=== PATIENT | male | born 1960 | race Caucasian/White ===

== ENCOUNTER 2018-03-22 11:00 | Emergency (ER) | payer BC ==
[2018-03-22] MEDS ORDERED: Sodium Chloride 0.9% 10 ML Syringe FLUSH PRN (11:13)
[2018-03-22] MEDS ORDERED: Aspirin 81 MG Tab.Chew PO ONE (11:13)
--- NOTE | 2018-03-22 11:16 | EDM.PDOC ---
ED HPI GENERAL MEDICAL PROBLEM - General Chief Complaint: Chest Pain Stated Complaint: CHEST PAIN Time Seen by Provider: 03/22/18 11:15 Source of Information: Reports: Patient, Old Records, Provider History Limitations: Reports: No Limitations - History of Present Illness INITIAL COMMENTS - FREE TEXT/NARRATIVE: 57 yo male presents with low/central chest pain lately. Tried antacids with partial relief. Was seen in the clinic today for this and referred to the ER. EKG in the clinic showed flipped T's in the lateral leads, he has not had any recent EKG's for comparison. He has no personal hx of CAD. Historically he has no hx of HTN, but it is high today. His cholesterol is good, he does not have DM , he is obese, he quit smoking in the early . FHx is stronger for CVA than for CAD with only a grandfather having a heart attack. No SOB, nausea or diaphoresis or radiation. Onset Date: 03/21/18 Duration: Hour(s):, Waxing/Waning Location: Reports: Chest (low, central) Quality: Reports: Burning, Pressure Severity: Moderate Improves with: Reports: Medication (antacids reduced slightly) Worsens with: Reports: Other (uncertain) Context: Reports: Other (See HPI) Associated Symptoms: Reports: Chest Pain. Denies: Diaphoresis, Fever/Chills, Nausea/Vomiting, Shortness of Breath Treatments [employer]: Reports: Other (see below) (antacids at home) Mid-Sternal Chest Pain Score (Numeric/FACES): 3 - Related Data Allergies Allergy/AdvReac Type Severity Reaction Status Date / Time No Known Allergies Allergy Verified 01/19/15 07:07 Home Meds: Home Meds Albuterol Sulfate [Albuterol Sulfate HFA] 2 puff INH Q4H PRN 08/20/14 [History] Beclomethasone Dipropionate [Qvar 40 Mcg] 2 puff INH DAILY 08/20/14 [History] Multivitamin with Minerals [Multiple Vitamin] 1 tab PO DAILY 08/20/14 [History] Triamcinolone Acetonide [Nasacort] 1 spray NASBOTH DAILY 08/20/14 [History] Cetirizine HCl [Zyrtec] 10 mg PO DAILY 01/17/15 [History] Psyllium with Sucrose [Metamucil] 1 packet PO DAILY 10/20/16 [History] Montelukast [Singulair] 10 mg PO DAILY 05/07/17 [History] Past Medical History HEENT History: Reports: Allergic Rhinitis, Impaired Vision, Other (See Below) Other HEENT History: TMJ Respiratory History: Reports: Asthma, Bronchitis, Recurrent, Sleep Apnea, SOB Gastrointestinal History: Reports: Colon Polyp Genitourinary History: Reports: Renal Calculus Musculoskeletal History: Reports: Other (See Below) Other Musculoskeletal History: right knee pain Neurological History: Reports: Migraines Endocrine/Metabolic History: Reports: Obesity/BMI 30+ - Infectious Disease History Infectious Disease History: Reports: Chicken Pox, Herpes - Past Surgical History Head Surgeries/Procedures: Reports: None HEENT Surgical History: Reports: Oral Surgery Male Surgical History: Reports: Ureteral Stent Endocrine Surgical History: Reports: None Neurological Surgical History: Reports: None Musculoskeletal Surgical History: Reports: Shoulder Surgery Dermatological Surgical History: Reports: Plastic Surgical Reconstruction/Repair , Other (See Below) Social & Family History - Family History Cardiac: Reports: Hypertension Respiratory: Reports: COPD, Sleep Apnea GI: Reports: Colon Polyps, Diverticulitis : Reports: Renal Calculus OBGYN: Reports: , Recurrent Spontaneous Neurological: Reports: CVA, Migraines Endocrine/Metabolic: Reports: Obesity/MBI 30+ Oncologic: Reports: Breast, Lung - Tobacco Use Smoking Status *Q: Never Smoker - Caffeine Use Caffeine Use: Reports: Coffee - Recreational Drug Use Recreational Drug Use: No ED ROS GENERAL - Review of Systems Review Of Systems: See Below Constitutional: Reports: No Symptoms HEENT: Reports: No Symptoms Respiratory: Reports: No Symptoms Cardiovascular: Reports: Chest Pain Endocrine: Reports: No Symptoms GI/Abdominal: Reports: Abdominal Pain (epigastric). Denies: Black Stool, Bloody Stool, Constipation, Diarrhea, Hematochezia, Nausea, Vomiting : Reports: No Symptoms Musculoskeletal: Reports: No Symptoms Skin: Reports: No Symptoms Neurological: Reports: No Symptoms ED EXAM, GENERAL - Physical Exam Exam: See Below Exam Limited By: No Limitations General Appearance: Alert, WD/WN, No Apparent Distress, Obese Eye Exam: Bilateral Eye: Normal Inspection Ears: Normal External Exam, Normal Canal, Hearing Grossly Normal Ear Exam: Bilateral Ear: Auricle Normal, Canal Normal Nose: Normal Inspection, Normal Mucosa, No Blood Throat/Mouth: Normal Inspection, Normal Lips, Normal Teeth, Normal Oropharynx, Normal Voice Head: Atraumatic, Normocephalic Neck: Normal Inspection Respiratory/Chest: No Respiratory Distress, Lungs Clear, Normal Breath Sounds, No Accessory Muscle Use Cardiovascular: Regular Rate, Rhythm, No Edema GI/Abdominal: Normal Bowel Sounds, Soft, No Distention, Tender (epigastric). No : Non-Tender, Distended, Guarding, Rigid, Rebound Back Exam: Normal Inspection. No: CVA Tenderness (R), CVA Tenderness (L) Extremities: Normal Inspection, Normal Range of Motion, Non-Tender, No Pedal Edema Neurological: Alert, Oriented, CN II-XII Intact, Normal Cognition, No Motor/ Sensory Deficits Psychiatric: Normal Affect, Normal Mood Skin Exam: Warm, Dry, Intact, Normal Color, No Rash EKG INTERPRETATION EKG Date: 03/22/18 Time: 11:00 Rhythm: NSR Rate (Beats/Min): 67 Shunk: Normal P-Wave: Present QRS: Normal ST-T: Normal QT: Normal Comparison: Change From Previous EKG EKG Interpretation Comments: inverted T waves in lateral leads. The clinic was able to find us an old EKG from 08/21. On this study he had the inverted T waves in I and AVL, but not V5 and V6. Course - Vital Signs Last Recorded V/S: Last Vital Signs Temp 35.3 C 03/22/18 12:09 Pulse 64 03/22/18 12:09 Resp 13 03/22/18 12:09 BP 155/86 H 03/22/18 12:09 Pulse Ox 94 L 03/22/18 12:09 - Orders/Labs/Meds Orders: Active Orders 24 hr Category Date Time Status Cardiac Monitoring [RC] .As Directed Care 03/22/18 11:13 Active Sodium Chloride 0.9% [Saline Flush] Med 03/22/18 11:13 Active 10 ml FLUSH ASDIRECTED PRN Saline Lock Insert [OM.PC] Routine Oth 03/22/18 11:13 Ordered Medication Orders Sodium Chloride (Saline Flush) 10 ml FLUSH ASDIRECTED PRN PRN Reason: Keep Vein Open Last Admin: 03/22/18 11:33 Dose: 10 ml Labs: Laboratory Tests 03/22/18 Range/Units 11:21 Troponin I < 0.017 (0.000-0.056) ng/mL Meds: Medications Generic Name Dose Route Start Last Admin Trade Name Merlin PRN Reason Stop Dose Admin Sodium Chloride 10 ml 03/22/18 11:13 03/22/18 11:33 Saline Flush FLUSH 10 ml ASDIRECTED PRN Administration Keep Vein Open Discontinued Medications Generic Name Dose Route Start Last Admin Trade Name Merlin PRN Reason Stop Dose Admin Aspirin 324 mg 03/22/18 11:13 03/22/18 11:30 Aspirin PO 03/22/18 11:14 324 mg ONETIME ONE Administration Al Hydroxide/Mg Hydroxide 15 0 ml 03/22/18 11:24 03/22/18 11:30 ml/ Lidocaine HCl 15 ml PO 03/22/18 11:25 30 ml ONETIME ONE Administration Departure - Departure Time of Disposition: 12:20 Disposition: Home, Self-Care 01 Condition: Good Clinical Impression: HTN, goal below 140/80 Gastritis Qualifiers: Gastritis type: unspecified gastritis Chronicity: acute Gastritis bleeding: without bleeding Qualified Code(s): K29.00 - Acute gastritis without bleeding Clinical Impression: (Ruled Out): GERD (gastroesophageal reflux disease) Instructions: Gastritis, Adult, [id number] Referrals: Alfredo Nicholson MD [Primary Care Provider] - Forms: ED Department Discharge Additional Instructions: Take famotidine 40 mg daily starting today. Avoid carbonated beverages. Use acetaminophen as needed, but limit use of ibuprofen or Aleve. Return for an exercise stress test to further make sure this is not your heart. You may use Gaviscon 30 ml after meals and at bedtime for further relief. Return a stool specimen for H. pylori testing. Return if you are worse. F/U with your provider after your stress test, a couple days after so the results are available. - My Orders Last 24 Hours: My Active Orders 03/22/18 11:13 Cardiac Monitoring [RC] .As Directed Sodium Chloride 0.9% [Saline Flush] 10 ml FLUSH ASDIRECTED PRN Saline Lock Insert [OM.PC] Routine - Assessment/Plan Last 24 Hours: My Active Orders 03/22/18 11:13 Cardiac Monitoring [RC] .As Directed Sodium Chloride 0.9% [Saline Flush] 10 ml FLUSH ASDIRECTED PRN Saline Lock Insert [OM.PC] Routine
[2018-03-22] MEDS ORDERED: Alum Hydrox/Mag Hydrox/Simeth 15 ML, Lidocaine 2% 15 ML PO ONE ×2 (11:24)
[2018-03-22 12:10] VITALS: BP 155/86
== END 2018-03-22 12:31 | disposition home or self-care (01) ==
LOC: JP.ED 11:00
DX: K29.00 Acute gastritis without bleeding (principal); I10 Essential (primary) hypertension; J45.909 Unspecified asthma, uncomplicated; Z79.899 Other long term (current) drug therapy
CPT/HCPCS: 36415; 84484; 99285; A9270

== ENCOUNTER 2020-01-03 06:21 | Day surgery (SDC) | payer BC ==
[2020-01-03] MEDS ORDERED: Dextrose 5%-Lactated Ringers 1,000 ML IV SCH (07:00)
[2020-01-03] MEDS ORDERED: Midazolam 1 MG/ML 2 ML SDV ONE (07:16)
[2020-01-03] MEDS ORDERED: Propofol 200 MG/20 ML SDV ONE ×2 (07:16→08:44)
[2020-01-03] MEDS ORDERED: fentaNYL 100 MCG/2 ML SDV ONE (07:16)
[2020-01-03] MEDS ORDERED: Albuterol/Ipratropium 3.0-0.5 MG/3 ML Neb Soln NEB ONE (07:30)
[2020-01-03 09:53] VITALS: BP 125/86; PULSE 65
--- NOTE | 2020-01-11 21:33 | OR ---
DATE OF PROCEDURE: 01/03/2020 SURGEON: Hayden Guillermo MD PREOPERATIVE DIAGNOSIS: Personal and family history of colonic polyps. POSTOPERATIVE DIAGNOSIS: Normal colonic examination. OPERATIVE PROCEDURE: Flexible colonoscopy. ANESTHESIA: IV sedation. INDICATION FOR PROCEDURE: A 59-year-old male presenting for followup colonoscopy, has both personal and family history of colon polyps. The plan is to do colonoscopy with biopsies and/or polypectomy as indicated. Potential risks of procedure including bleeding and perforation were discussed, and the patient wishes to proceed. DESCRIPTION OF PROCEDURE: The patient was taken to the operating room and placed in a left lateral decubitus position. IV sedation was administered, after which the initial digital rectal exam was performed and was unremarkable. Colonoscope was then passed into the rectum with retroflexion revealing uncomplicated hemorrhoidal columns. Scope was eventually passed to the level of the cecum. The prep was quite good with only small liquid stool present. To that level, no additional polyps or other signs of neoplasia were seen; likewise there was no diverticulosis or areas of colitis. Scope was then withdrawn. The above findings reconfirmed and the procedure concluded. The patient was taken to the recovery room in satisfactory condition. Recommendation would be to repeat the colonoscopy in 5 years. Hayden Guillermo MD /[id number]
--- OUTSIDE RECORDS SUMMARY | 2020-01-12 12:14 | XMSREPORT | Referral Summary ---
:1960 Author Organization [employer] Address [address] [address] Phone Care Team Providers Name Role Phone MD Bharat Primary Care Provider Reason for Referral Surgery (Routine) Status Reason Specialty Diagnoses / Referred By Referred To Procedures Contact Contact Authorized Prior Auth Before Diagnoses Colon cancer screening Eagle Nicholson Daniel, Scheduling Procedures COLONOSCOPY,FLEX,DIAGNOSTIC MD PARIS Fuentes [address] [phone] Phone: Fax: Comments Authorizing provider: Admitting Hospital: [facility] Diagnosis: colon cancer screening Procedure and Procedure Code: Date procedure: Related to work comp? No Will Botox be used during procedure: No (Routine) Status Reason Specialty Diagnoses / Referred By Referred To Procedures Contact Contact New Request Diagnoses Colon cancer screening Alfredo Nicholson Unlisted, Provider [address] [place], [place] [address] Question Answer Schedule procedure for: Screening Colonoscopy Comments If referring outside of the [facility], please pet counselor patient of potential [id number] expenses. Reason for Referral: Screening Colonosc opy Reason for Visit Reason Comments Physical Flu Vaccination Encounter Details Date Type Department Care Team Description 12/02/2019 Office Visit Alfredo Corrales [facility] e health care (Primary Dx); [facility] Mild intermittent asthma without complic ation; [facility] [address] Colon cancer screening; [address] [facility] [place] Need for prophylactic vaccination and in oculation against influenza; [place] CHAU on CPAP; [id number] Hyperlipidemia, unspecified hyperlipidem ia type [phone] Allergies Active Allergy Reactions Severity Noted Date Comments Cats Sneezing Medium 06/07/2019 Sneezes Dogs Sneezing Medium 06/07/2019 Sneezes Gramineae Pollens Unknown Medium 06/07/2019 Trees - Lisinopril Cough Low 05/05/2019 Unclear Patient Report Swelling Medium 06/07/2019 MSG- Swells up and becomes lethargic documented as of this encounter (statuses as of 12/05/2019) Medications Medication Sig Dispensed Refills Start Date End Date Status CPAP device Dx: CHAU Replace 1 Each 0 07/15/2012 Active supplies as needed. triamcinolone (NASACORT Place 1 [place] 3 Inhaler 3 11/22/2013 Active AQ) 55 MCG/ACT Inhaler into both nostrils two times a day. Cetirizine HCl (ZYRTEC Take 10 mg by 0 Active OR) mouth one time a day. Multiple Take 2 Tabs by 0 Activ e Vitamins-Minerals mouth one time a (ONE-A-DAY FOR HIM day. VITACRAVES) Chew Tab benzonatate (TESSALON Take 1 Cap by 100 Cap 0 05/21/2017 Active PERLES) 100 MG mouth three times capsuleIndications: a day as needed Persistent dry cough, for Cough. Mild intermittent asthma with acute exacerbation Additional Information Patient taking differently: 100 mg Oral NEEDED, Cough, Reported on 06/07/2019 aspirin 81 MG chewable Chew and swallow 81 mg 0 Active tablet one time a day. Take with food. nitroglycerin (NITROSTAT) Place 1 Tab under the 25 Tab 11 Active 0.4 MG sublingual tablet tongue every five minutes as needed for Chest pain. Do not crush; maximum of 3 doses in 15 minutes. albuterol HFA (PROAIR HFA, Inhale 1-2 Puffs into 3 Inhaler 3 1 02/09/2018 Active VENTOLIN HFA) 108 (90 Base) the lungs every four MCG/ACT inhalation hours as needed for aerosolIndications: Mild Shortness of Breath. intermittent asthma without Shake before using. complication Additional Information Patient taking differently: 1-2 Puff Inhalation NEEDED, Shortness of Breath, Shake before using., Reported on 06/07/2019 amLODIPine (Norvasc) Take 1 Tab by 90 Tab 3 08/02/2019 Active 10 MG tablet mouth one time a day. famotidine (Pepcid) TAKE 1 TABLET 180 Tab 0 10/31/2019 Active 20 MG BY MOUTH TWICE tabletIndications: DAILY Byrd's esophagus without dysplasia beclomethasone HFA Inhale 2 Puffs 10.6 g 11 12/02/2019 Active (Qvar Redihaler) 80 into the lungs MCG/ACT Aerosol two times a Breath day. ActivatedIndications: Mild intermittent asthma without complication losartan (Cozaar) 50 Take 1 Tab by 30 Tab 11 12/02/2019 Active MG tablet mouth one time a day. metoprolol succinate Take 0.5 Tabs 15 Tab 11 12/02/2019 Active (Toprol-XL) 25 MG 24 by mouth one hour extended-release time a day. Do tablet not crush or chew. montelukast Take 1 Tab by 30 Tab 11 12/02/2019 Act biju (Singulair) 10 MG mouth at tabletIndications: bedtime. Mild intermittent asthma without complication montelukast Take 1 Tab by 30 Tab 11 12/10/2018 Dis continued (SINGULAIR) 10 MG mouth at 020 (R eorder) tabletIndications: bedtime. Mild intermittent asthma without complication beclomethasone HFA Inhale 2 Puffs 3 Inhaler 3 12/10/201811/10 Discontinued (QVAR REDIHALER) 80 into the lungs 020 (Reorder) MCG/ACT Aerosol two times a Breath day. ActivatedIndications: Mild intermittent asthma without complication pantoprazole Take 1 Tab by 30 Tab 0 06/13/2019 Di scontinued (Protonix) 40 MG mouth every 020 ( Changed to an delayed-release morning before alternate therapy) tablet breakfast. Do not crush. losartan (Cozaar) 50 Take 1 Tab by 90 Tab 2 07/05/201911/10 Discontinued MG tablet mouth one time 020 (Reor cori) a day. metoprolol succinate Take 0.5 Tabs 45 Tab 3 08/02/201911/10 Discontinued (Toprol-XL) 25 MG 24 by mouth one 020 (Reorder) hour extended-release time a day. Do tablet not crush or chew. documented as of this encounter (statuses as of 12/05/2019) Active Problems Problem Noted Date Other dysphagia 06/08/2019 Overview: Added automatically from request for shakeel karrie [id number] Atypical chest pain 06/08/2019 Overview: Added automatically from request for shakeel karrie [id number] Normal coronary arteries 04/21/2018 Grade II diastolic dysfunction 04/21/2018 Unstable angina 04/02/2018 Overview: Added automatically from request for shakeel karrie [id number] HTN, goal below 130/80 04/02/2018 Overview: Added automatically from request for shakeel karrie [id number] Abnormal stress test 04/02/2018 Overview: Added automatically from request for shakeel karrie [id number] Class 3 severe obesity with serious comorbidity and karma dy mass index (BMI) 04/02/2018 of 40.0 to 44.9 in adult, unspecified obesity type Overview: Added automatically from request for shakeel karrie [id number] CHRISTENSEN (dyspnea on exertion) 04/02/2018 Overview: Added automatically from request for shakeel karrie [id number] Morbid obesity with BMI of 40.0-44.9, adult 05/21/2017 Foreign body in paranasal sinus, sequela 05/21/2017 Mild intermittent asthma without complication 01/07/20 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 Excessive dietary caloric intake 04/06/2015 Compulsive overeating 04/06/2015 Nephrolithiasis 09/12/2014 CHAU on CPAP 09/27/2013 Hx of repair of rotator cuff 10/19/2012 documented as of this encounter (statuses as of 12/05/2019) Resolved Problems Problem Noted Date Resolved Date Moderate persistent asthma without complication 12/04/2016 01/06/2017 documented as of this encounter (statuses as of 12/05/2019) Immunizations Name Administration Dates Next Due Influenza (6+ Months) Quad NPF Vial 01/22/2015 Influenza (Historic Use Only) 01/02/2010, 01/29/2009, 2007, 01/19/2007 Influenza A H1n1 01/29/2009 Influenza Quad Preservative Free 12/02/2019, 12/10/2018, , 12/04/2016, 11/19/2015 Influenza Seasonal Inj A,B 01/31/2014, 11/10/2012, 3, 01/27/2011 Pneumovax 23 12/10/2018, 10/05/2014, 01/02/2010 Tdap (7 years and older) 09/10/2011 Zoster Shingrix 2 Dose (Shingles) 03/14/2019, 12/10/201802/2019 documented as of this encounter Social History Tobacco Use Types Packs/Day Years Used Date Former Smoker Cigarettes 1 20 02/09/1973 - 0 02/21/1991 Smokeless Tobacco: Never Used Alcohol Use Drinks/Week oz/Week Comments Yes Alcohol Habits Answer Date Recorded How often do you have a drink containing alcohol? 2-3 times a week 04/21/2018 How many drinks containing alcohol do you have on a 1 or 2 04/21/2018 typical day when you are drinking? How often do you have six or more drinks on one Never 11/29/2019 occasion? Social Isolation Answer Date Recorded In a typical week, how many times do you Once a week 11/29/2019 talk on the phone with family, friends, or neighbors? How often do you get together with friends Once a week 11/29/2019 or relatives? How often do you attend restorationist or mormon More than 4 time s per year 11/29/2019 services? Do you belong to any clubs or organizations Yes 11/29/2019 such as restorationist groups, unions, fraternal or athletic groups, or school groups? How often do you attend meetings of the More than 4 times pe r year 11/29/2019 clubs or organizations you belong to? Are you now , , , 11/29/2019 , never or living with a partner? Physical Activity Answer Date Recorded On average, how many days per week do you engage in moderate to 0 days 11/29/2019 strenuous exercise (like walking fast, running, jogging, dancing, swimming, biking, or other activities that cause a light or heavy sweat)? On average, how many minutes do you engage in exercise at th is 0 min 11/29/2019 level? Stress Answer Date Recorded Do you feel stress - tense, restless, nervous, or anxious, N ot at all 11/29/2019 or unable to sleep at night because your mind is troubled all the time - these days? Education Answer Date Recorded What is the highest level of school Bachelor's degree (e.g., BA, AB, 11/29/2019 you have completed or the highest BS) degree you have received? Financial Resource Strain Answer Date Recorded How hard is it for you to pay for the very basics like Not h abel at all 06/07/2019 food, housing, medical care, and heating? Intimate Partner Violence Answer Date Recorded Within the last year, have you been afraid of your partner o r No 11/29/2019 ex-partner? Within the last year, have you been humiliated or emotionall y No 11/29/2019 abused in other ways by your partner or ex-partner? Within the last year, have you been kicked, hit, slapped, or No 11/29/2019 otherwise physically hurt by your partner or ex-partner? Within the last year, have you been raped or forced to have any No 11/29/2019 kind of sexual activity by your partner or ex-partner? Food Insecurity Answer Date Recorded Within the past 12 months, you worried that your food would Never true 06/07/2019 run out before you got money to buy more. Within the past 12 months, the food you bought just didn't N ever true 06/07/2019 last and you didn't have money to get more. Transportation Needs Answer Date Recorded In the past 12 months, has lack of transportation kept you f rom No 06/07/2019 medical appointments or from getting medications? In the past 12 months, has lack of transportation kept you f rom No 06/07/2019 meetings, work, or getting things needed for daily living? Sex Assigned at Date Recorded Male 03/26/2018 1:16 PM [employer] Job Start Date Occupation Industry Not on file Not on file Not on file COVID-19 Exposure Response Date Recorded In the last month, have you been in contact with No / Unsure 12/02/2019 10:50 AM CDT someone who was confirmed or suspected to have Coronavirus / COVID-19? documented as of this encounter Last Filed Vital Signs Vital Sign Reading Time Taken Comments Blood Pressure 122/68 12/02/2019 10:57 AM CDT Pulse 68 12/02/2019 10:57 AM CDT Temperature 36.3 C (97.3 F) 12/02/2019 10:57 AM CDT Respiratory Rate 16 12/02/2019 10:57 AM CDT Oxygen Saturation 97% 12/02/2019 10:57 AM CDT Inhaled Oxygen Concentration - - Weight 133.8 kg (294 lb 15.6 oz) 12/02/2019 10:57 AM CDT Height 178.8 cm (5' 10.38") 12/02/2019 10:57 AM CDT Body Mass Index 41.87 12/02/2019 10:57 AM CDT documented in this encounter Progress Notes Alfredo Nicholson MD - 12/02/2019 12:53 PM CDT Patient Name: SOURAV HIGGINS Date of Service: 12/02/2019 : 1960 Age: 58 Sex: M Patient Loc/Room: [facility]/ Provider: Alfredo Nicholson MD, Family Practice OFFICE NOTE SITE: [facility] SUBJECTIVE: 58-year-old male is seen today for review of chronic health problems. Pat has a known history of obstructive sleep apnea with CPAP therapy followed by sleep lab. He notes good nocturnal rest. No significant daytime somnolence or diminished activity. Had been involved in a Move, weight loss program prior to presentation of COVID-19 pandemic. Since the exercise program has been shuttered during the pandemic, he has had limited physical activity and recognized weight gain. He does have a history of mild persistent asthmatic lung disease managed with maintenance steroid inhalers and p.r.n. use of albuterol metered-dose inhaler, typically once per week. He notes cold air induced symptoms are reported. Has received his influenza vaccine today. Pneumococcal status is up to date. No history of COVID-19 disease. He is self-employed as an insurance salesperson. Uses appropriate social distancing, masking and sanitation habits to minimize risk of exposure. Noted history of underlying congestive heart failure. He is followed by CHF clinic at 6-month intervals. No recent cardiac symptoms. Denying orthopnea, PND, palpitations, anginal-like pain, or decline in exercise tolerance. Dependent edema is managed with use of compression stockings and elevation of the legs at night. HABITS: Nonsmoker. Caffeine intake of 2-4 cups of coffee daily. Alcohol use of less than 1 drink perday. Colonoscopy of 5 years ago was normal. Notes a familial history of premalignant polyps involving his father. REVIEW OF SYSTEMS: Neurologic - mild hearing loss, uses hearing protection with noise exposure. Corrective lenses are worn. No cataracts or glaucoma. No additional cardiac, respiratory, or GI complaints. Bowel movements are regular without melena or hematochezia. - chronic renal insufficiency, followed by nephrology services. Notes nocturia x1. OBJECTIVE: Weight is up slightly at 294 pounds, BMI 42, blood pressure 122/68, pulse 68, respiratoryrate 16. Ears, nose and throat are negative on inspection. Neck - no adenopathy, thyromegaly, or JVD. Brisk carotid pulses. No bruits. Lungs - symmetrical, clear, resonant, nontachypneic. Heart is regular without murmurs or gallops. Abdomen - obese, soft, nontender, and nondistended. No organomegaly. Active sounds. and rectal exam omitted. Extremities - mild pitting edema at the distal legs. Good arterial pulses. Skin is intact. No ischemic skin changes. IMPRESSION AND PLAN: 1. Mild intermittent asthmatic lung disease. Continue with maintenance QVAR and rescue use of albuterol inhaler. Influenza vaccine is administered today. Pneumococcal vaccine at 5-year intervals. 2. Obstructive sleep apnea. Continue with use of nocturnal CPAP therapy. Advised exercise and weightloss efforts as necessary treatment for management of sleep disorder. 3. History of congestive heart failure, chronic, stable accompanied by renal insufficiency. Does have routine followup with nephrology and cardiology services and labs to be drawn with specialty appointments. No change in medications. Advised low sodium diet. 4. History of arthralgias, previous patellofemoral syndrome with right patellar prosthesis. Stiffness is noted. Encourage range of motion exercises and bicycling as a means to improve on motion and general stiffness of the knee. 5. Familial history of colon polyps, 5-year colonoscopy is anticipated. [facility]. Alfredo Nicholson MD [facility] [phone] [address] /GS TID #:[id number] /jmnnc Alfredo ruiz MD - 12/02/2019 11:00 AM CDTDictated. documented in this encounter Plan of Treatment Date Type Specialty Care Team Description 01/02/2020 Appointment Gastroenterology Myrna Layton PA-C [address] [place] [phone] 01/11/2020 Appointment Pulmonary Harry Fletcher PA-C [address] [place] [address] [phone] 01/11/2020 Appointment Pulmonary Patti Jones, CASING MIXER, SENIOR DATABASE ENGINEER [address] [place] [address] [phone] 04/27/2020 Appointment Cardiology Gaston Kim, CASING MIXER, SENIOR DATABASE ENGINEER [address] [place] [address] [phone] Name Type Priority Associated Diagnoses Order S chedule LIPID PANEL Lab Routine Hyperlipidemia, unspecified Expected: 05/16/2020 hyperlipidemia type (Approxi mate), Expires: 06/29/2020 Name Type Priority Associated Diagnoses Order S chedule SCHEDULE ENDOSCOPY REFERRAL Routine Colon cancer screening Ordered: 12/02/2019 [facility] documented as of this encounter Implants Implanted Type Area Machine Stone Polisher Device Shelf Model / Identifier Expiration Date Ser ial / Lot 5.5mm [employer] [place] [id number] - [id number] Lef t: ARTHREX 06/08/2014 [id number] / Implanted: Qty: 4 on 09/08/2012 by Donovan Servin MD at [facility] NA / [id number] documented as of this encounter Visit Diagnoses Diagnosis Preventative health care - Primary Routine general medical examination at a health care facility Mild intermittent asthma without complic ation Unspecified asthma Colon cancer screening Special screening for malignant neoplasm s, colon Need for prophylactic vaccination and in oculation against influenza CHAU on CPAP Obstructive sleep apnea (adult) (pediatr ic) Hyperlipidemia, unspecified hyperlipidem ia type documented in this encounter Insurance Payer Benefit Plan / Subscriber ID Effective Dates Phone Addre ss Type Group BCBS OTHER BCBS OTHER [id number] 2018-Presen BCBS Commercial STATE STATE t (Work) documented as of this encounter Advance Directives For more information, please contact: [phone] Code Status Date Activated Date Inactivated Comments Full Code 04/02/2018 5:15 PM 04/03/2018 12:12 AM Full Code 04/02/2018 10:38 AM 04/02/2018 5:15 PM Full Code 10/30/2014 12:01 PM 10/30/2014 6:42 PM Full Code 10/30/2014 9:17 AM 10/30/2014 12:01 PM Full Code 09/08/2012 3:25 PM 09/09/2012 2:23 AM
== END 2020-01-03 10:07 | disposition home or self-care (01) ==
LOC: JP.SDS 06:21
PROVIDERS: ATTEND Surgery
DX: Z12.11 Encounter for screening for malignant neoplasm of colon (principal); K64.9 Unspecified hemorrhoids; G47.33 Obstructive sleep apnea (adult) (pediatric); J45.909 Unspecified asthma, uncomplicated; I10 Essential (primary) hypertension; E66.01 Morbid (severe) obesity due to excess calories; Z88.8 Allergy status to other drugs, medicaments and biological substances; Z83.71 Family history of colonic polyps
CPT/HCPCS: 45378; 94640; J2250; J2704; J3010; J7121; J7620-GY

== ENCOUNTER 2020-10-03 19:37 | Emergency (ER) | payer BC ==
--- NOTE | 2020-10-03 21:28 | EDM.PDOC ---
ED HPI GENERAL MEDICAL PROBLEM - General Chief Complaint: Upper Extremity Injury/Pain Stated Complaint: FELL AT [employer] , HAND INJURY Time Seen by Provider: 10/03/20 20:27 Source of Information: Reports: Patient History Limitations: Reports: No Limitations - History of Present Illness INITIAL COMMENTS - FREE TEXT/NARRATIVE: Is a 59-year-old male presenting to the ED for evaluation of left hand pain following a fall [place] the [employer] today. Patient was walking into the [place] when he stepped into a hole between 2 merging sidewalks causing him to roll his ankle and fall to the ground. He landed on outstretched left hand causing injury to the base of the left thumb and lateral hand. Since then he has had swelling and decreased range of motion of the hand having some difficulty with closing his fingers making a fist. He does report pain over the thenar eminence as well as over the fifth metacarpal. The pain does worsen with flexion of the wrist and closure of the hand. There is some bruising noted over the lateral hand but none evident over the thenar eminence. This area is quite tender to palpation though. Patient denies any new onset of numbness or tingling. He has no other significant complaints. left hand Pain Score (Numeric/FACES): 4 - Related Data Allergies Allergy/AdvReac Type Severity Reaction Status Date / Time cat dander Allergy Sneezing Verified 10/03/20 20:26 dog dander Allergy Sneezing Verified 10/03/20 20:26 grass pollen Allergy Other Verified 10/03/20 20:26 lisinopril Allergy Cough Verified 10/03/20 20:26 Home Meds: Home Meds Albuterol Sulfate [Albuterol Sulfate HFA] 2 puff INH Q4H PRN 08/20/14 [History] Beclomethasone Dipropionate [Qvar 40 Mcg] 2 puff INH BID 08/20/14 [History] Multivitamin with Minerals [Multiple Vitamin] 2 tab PO DAILY 08/20/14 [History] Triamcinolone Acetonide [Nasacort] 1 spray NASBOTH DAILY 08/20/14 [History] Cetirizine HCl [Zyrtec] 10 mg PO DAILY 01/17/15 [History] Montelukast [Singulair] 10 mg PO BEDTIME 05/07/17 [History] Aspirin [Adult Aspirin] 81 mg PO DAILY 03/29/18 [History] Benzonatate [Tessalon Perle] 100 mg PO TID PRN 01/02/20 [History] Famotidine 20 mg PO BID 01/02/20 [History] Losartan Potassium [Cozaar] 50 mg PO DAILY 01/02/20 [History] Metoprolol Succinate [Toprol Xl] 12.5 mg PO BEDTIME 01/02/20 [History] Nitroglycerin [Nitrostat] 1 tab SL ASDIRECTED PRN 01/02/20 [History] amLODIPine [Norvasc] 5 mg PO DAILY 01/02/20 [History] Past Medical History HEENT History: Reports: Allergic Rhinitis, Impaired Vision, Other (See Below) Other HEENT History: TMJ Cardiovascular History: Reports: Angina, CAD, Hypertension Respiratory History: Reports: Asthma, Bronchitis, Recurrent, Sleep Apnea, SOB, Other (See Below) Other Respiratory History: Cpap at home Gastrointestinal History: Reports: Colon Polyp, GERD, Other (See Below) Other Gastrointestinal History: Lucian's esphagus Genitourinary History: Reports: Chronic Renal Insuffiency, Renal Calculus Musculoskeletal History: Reports: Arthritis, Other (See Below) Other Musculoskeletal History: right knee pain Neurological History: Reports: Headaches, Chronic, Other (See Below) Other Neuro History: 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 Endocrine/Metabolic History: Reports: Obesity/BMI 30+ - Infectious Disease History Infectious Disease History: Reports: Chicken Pox, Herpes - Past Surgical History Head Surgeries/Procedures: Reports: None HEENT Surgical History: Reports: Oral Surgery, Other (See Below) Other HEENT Surgeries/Procedures: maxillary sinus mass Cardiovascular Surgical History: Reports: Other (See Below) Other Cardiovascular Surgeries/Procedures: angiogram Respiratory Surgical History: Reports: None GI Surgical History: Reports: Colonoscopy, EGD, Polypectomy Male Surgical History: Reports: Kidney Stone Extraction, Lithotripsy (ESWL), Ureteral Stent Endocrine Surgical History: Reports: None Musculoskeletal Surgical History: Reports: Shoulder Surgery, Other (See Below) Other Musculoskeletal Surgeries/Procedures:: rotator cuff left. right knee cap replacement Dermatological Surgical History: Reports: Plastic Surgical Reconstruction/Repair, Other (See Below) Social & Family History - Family History Family Medical History: No Pertinent Family History Cardiac: Reports: Hypertension Respiratory: Reports: COPD, Sleep Apnea GI: Reports: Colon Polyps, Diverticulitis : Reports: Renal Calculus OBGYN: Reports: , Recurrent Spontaneous Neurological: Reports: CVA, Migraines Endocrine/Metabolic: Reports: Obesity/MBI 30+ Oncologic: Reports: Breast, Lung - Tobacco Use Tobacco Use Status *Q: Never Tobacco User - Caffeine Use Caffeine Use: Reports: Coffee - Recreational Drug Use Recreational Drug Use: No Review of Systems - Review of Systems Review Of Systems: See Below Constitutional: Reports: No Symptoms Musculoskeletal: Reports: Hand Pain (Left hand pain especially over the lateral hand and over the thenar eminence on the palm.) Skin: Reports: Bruising (Bruising on the lateral left hand) Neurological: Reports: No Symptoms ED EXAM, GENERAL - Physical Exam Exam: See Below Exam Limited By: No Limitations General Appearance: Alert, No Apparent Distress Cardiovascular: Normal Peripheral Pulses Peripheral Pulses: 2+: Radial (L) Extremities: Limited Range of Motion (Decreased range of motion considering hand grasp on the left.), Other (Tenderness with palpation over the lateral fifth metacarpal and over the palmar thenar eminence. There is reduced range of motion of the fingers with closure due to pain. There is no obvious deformity.) Neurological: Alert, Oriented, Normal Cognition, No Motor/Sensory Deficits Psychiatric: Normal Affect, Normal Mood Skin Exam: Ecchymosis (Ecchymosis over the lateral left hand) Course - Vital Signs Last Recorded V/S: Last Vital Signs Temp 36.3 C 10/03/20 20:23 Pulse 108 H 10/03/20 20:23 Resp 16 10/03/20 20:23 BP 128/89 10/03/20 20:23 Pulse Ox 95 10/03/20 20:23 - Orders/Labs/Meds Orders: Active Orders 24 hr Category Date Time Status Hand Comp Min 3V Lt [CR] Stat Exams 10/03/20 20:58 Ordered - Radiology Interpretation Free Text/Narrative:: I reviewed the images of the three-view x-ray of the left hand. There is no evidence for acute fracture or dislocation. - Re-Assessments/Exams Free Text/Narrative Re-Assessment/Exam: 10/03/20 21:27 examination, there is significant tenderness and swelling over the lateral left hand especially around the fifth metacarpal. There is some bruising noted but no significant deformity. The patient does have some limited range of motion considering closure of the fist but this is likely due to pain and swelling. He does have tenderness to palpation over the left thenar eminence but no obvious significant swelling or bruising. X-rays were obtained and show no acute osseous abnormalities suggesting that this is likely contusion of the hand. We discussed management of this including the use of ice, ibuprofen, elevation and rest. I anticipate this will get better over the course of the next 2 to 3 days. Departure - Departure Time of Disposition: 21:28 Disposition: Home, Self-Care 01 Clinical Impression: Contusion of left hand, initial encounter - Discharge Information Instructions: Hand Contusion Referrals: PCP,None [Primary Care Provider] - Care Plan Goals: On examination there are several areas that are suggestive of bruising of the hand especially over the lateral left hand and over the base of the thumb. X- rays did not show any evidence for a fracture or dislocation. Management of the bruising will likely require an anti-inflammatory like ibuprofen or Aleve as well as ice and elevation to reduce the swelling. I anticipate that this will get better over the course of the next 2 to 3 days with this management. I expect full recovery. Feel free to contact us if you have any questions. Sepsis Event Note (ED) - Evaluation Sepsis Screening Result: No Definite Risk - Focused Exam Vital Signs: Vital Signs Temp Pulse Resp BP Pulse Ox 10/03/20 20:23 36.3 C 108 H 16 128/89 95 10/03/20 20:14 36.3 C 108 H 16 128/89 95 - Problem List & Annotations (1) Contusion of left hand, initial encounter SNOMED Code(s): 2857308 Code(s): S60.222A - CONTUSION OF LEFT HAND, INITIAL ENCOUNTER Status: Acute Priority: Low Current Visit: Yes - Problem List Review Problem List Initiated/Reviewed/Updated: Yes - My Orders Last 24 Hours: My Active Orders 10/03/20 20:58 Hand Comp Min 3V Lt [CR] Stat - Assessment/Plan Last 24 Hours: My Active Orders 10/03/20 20:58 Hand Comp Min 3V Lt [CR] Stat
[2020-10-03 21:46] VITALS: BP 143/82; PULSE 103
--- NOTE | 2020-10-04 14:48 | CRLCR ---
For Patients: As a result of the Cures Act, medical imaging exams and procedure reports are released immediately into your electronic medical record. You may view this report before your referring provider. If you have questions, please contact your health care provider. INDICATION: Pain and swelling after fall TECHNIQUE: Three views left hand COMPARISON: None FINDINGS AND IMPRESSION: No acute fracture or dislocation. No suspicious bone lesion. No erosive joint space changes. No radiopaque foreign body. Dictated by Canelo Rodriguez MD @ 10/04/2020 2:47:32 PM Dictated by: Canelo Rodriguez MD @ 10/04/2020 14:47:35 (Electronically Signed)
== END 2020-10-03 21:41 | disposition home or self-care (01) ==
LOC: JP.ED 19:37
DX: S60.222A Contusion of left hand, initial encounter (principal); I25.119 Atherosclerotic heart disease of native coronary artery with unspecified angina pectoris; I12.9 Hypertensive chronic kidney disease with stage 1 through stage 4 chronic kidney disease, or unspecified chronic kidney disease; N18.9 Chronic kidney disease, unspecified; E66.9 Obesity, unspecified; Z68.30 Body mass index [BMI] 30.0-30.9, adult; Z79.82 Long term (current) use of aspirin; Z79.899 Other long term (current) drug therapy; Z91.09 Other allergy status, other than to drugs and biological substances; Z88.8 Allergy status to other drugs, medicaments and biological substances; W18.31XA Fall on same level due to stepping on an object, initial encounter
CPT/HCPCS: 73130-LT; 99283-25

== ENCOUNTER 2022-06-17 06:30 | Day surgery (SDC) | payer BC ==
[2022-06-17] MEDS ORDERED: Lactated Ringers 1,000 ML IV SCH (07:00)
[2022-06-17] MEDS ORDERED: Propofol 200 MG/20 ML SDV ONE (07:26)
[2022-06-17] MEDS ORDERED: Midazolam 1 MG/ML 2 ML SDV ONE (07:27)
[2022-06-17] MEDS ORDERED: fentaNYL 50 MCG/ML SDV ONE (07:27)
[2022-06-17 08:56] VITALS: BP 144/78; PULSE 52
== END 2022-06-17 09:01 | disposition home or self-care (01) ==
LOC: JP.SDS 06:30
PROVIDERS: ATTEND Family Medicine
DX: K22.70 Barrett's esophagus without dysplasia (principal); I12.9 Hypertensive chronic kidney disease with stage 1 through stage 4 chronic kidney disease, or unspecified chronic kidney disease; N18.9 Chronic kidney disease, unspecified; G47.33 Obstructive sleep apnea (adult) (pediatric); E66.9 Obesity, unspecified; J45.909 Unspecified asthma, uncomplicated; Z88.8 Allergy status to other drugs, medicaments and biological substances; Z79.899 Other long term (current) drug therapy; Z95.5 Presence of coronary angioplasty implant and graft
CPT/HCPCS: 43235; J2250; J2704; J3010; J7120

== ENCOUNTER 2023-03-17 21:09 | Emergency (ER) | payer BC ==
[2023-03-18 00:51] LABS: BASOPHILS PERCENT AUTO 0.2 % (0.1-1.3); HEMATOCRIT 43.3 % (38.4-49.7); HEMOGLOBIN 15.1 g/dL (12.9-16.9); IMMATURE GRAN PERCENT AUTO 0.2 % (0.0-0.7); LYMPHOCYTES ABSOLUTE AUTO 0.54 K/uL (0.8-3.3); LYMPHOCYTES PERCENT AUTO 9.3 % (11.4-47.7); MEAN CORPUSCULAR HEMOGLOBIN 31.1 pg (31.6-35.5); MEAN CORPUSCULAR HGB CONC 34.9 g/dL (31.6-35.5); MEAN CORPUSCULAR VOLUME 89.3 fL (81.4-99.0); MONOCYTES ABSOLUTE AUTO 0.74 K/uL (0.20-0.90); MONOCYTES PERCENT AUTO 12.8 % (3.3-12.6); NEUTROPHILS PERCENT AUTO 77.5 % (40.0-78.1); PLATELET COUNT,PLT 170 K/uL (130-375); RED BLOOD CELL COUNT 4.85 M/uL (4.14-5.76); WHITE BLOOD CELL COUNT,WBC 5.8 K/uL (3.2-11.0)
[2023-03-18 00:52] LABS: BASOPHILS ABSOLUTE AUTO 0.01 K/uL (0.00-0.10); IMMATURE GRAN ABSOLUTE AUTO 0.01 K/uL (0.00-0.23)
[2023-03-18] MEDS: Sodium Chloride 0.9% 1,000 ML IV SCH (01:00)
[2023-03-18] MEDS: Ketorolac 15 MG/ML SDV IVPUSH ONE (01:01)
[2023-03-18 01:09] LABS: C-REACTIVE PROTEIN 4.15 mg/dL (<0.50); CALCIUM 8.3 mg/dL (8.5-10.1); CREATININE 1.4 mg/dL (0.8-1.3); EST CRCL DRUG DOSING (CG) 55.76 mL/min; POTASSIUM,K 3.1 mmol/L (3.6-5.2)
[2023-03-18 01:10] LABS: ANION GAP 12.1 mmol/L (5.0-14.0)
[2023-03-18 01:50] LABS: CORONAVIRUS COVID-19 NAA NEGATIVE (NEGATIVE); INFLUENZA A NAA POSITIVE (NEGATIVE); INFLUENZA B NAA NEGATIVE (NEGATIVE); RESPIRATORY SYNCYTIAL VIR NAA NEGATIVE (NEGATIVE)
[2023-03-18 01:57] VITALS: BP 125/70; PULSE 89
== END 2023-03-18 02:40 | disposition home or self-care (01) ==
LOC: JP.ED 21:09
DX: J10.1 Influenza due to other identified influenza virus with other respiratory manifestations (principal); I10 Essential (primary) hypertension; J45.909 Unspecified asthma, uncomplicated; K21.9 Gastro-esophageal reflux disease without esophagitis; M19.90 Unspecified osteoarthritis, unspecified site; E66.9 Obesity, unspecified; Z68.37 Body mass index [BMI] 37.0-37.9, adult; Z79.82 Long term (current) use of aspirin; Z86.16 Personal history of COVID-19; Z91.048 Other nonmedicinal substance allergy status; Z88.8 Allergy status to other drugs, medicaments and biological substances; Z79.899 Other long term (current) drug therapy
CPT/HCPCS: 0241U; 36415; 71045; 71045-26; 80048; 83605; 85025; 86140; 96374; 99283; 99283-25; J1885; J7030

== ENCOUNTER 2023-03-22 09:27 | Emergency (ER) | payer BC ==
[2023-03-22 10:10] VITALS: BP 130/74; PULSE 75
[2023-03-22] MEDS: Benzonatate 100 MG Cap PO ONE (10:55)
[2023-03-22] MEDS: Albuterol 0.083% 2.5 MG/3 ML Neb Soln NEB ONE (10:55)
[2023-03-22 10:56] LABS: BASOPHILS ABSOLUTE AUTO 0.03 K/uL (0.00-0.10); BASOPHILS PERCENT AUTO 0.6 % (0.1-1.3); EOSINOPHILS PERCENT AUTO 0.4 % (0.0-5.4); HEMATOCRIT 41.3 % (38.4-49.7); HEMOGLOBIN 14.7 g/dL (12.9-16.9); IMMATURE GRAN PERCENT AUTO 0.2 % (0.0-0.7); LYMPHOCYTES ABSOLUTE AUTO 0.82 K/uL (0.8-3.3); LYMPHOCYTES PERCENT AUTO 16.6 % (11.4-47.7); MEAN CORPUSCULAR HEMOGLOBIN 31.1 pg (31.6-35.5); MEAN CORPUSCULAR HGB CONC 35.6 g/dL (31.6-35.5); MEAN CORPUSCULAR VOLUME 87.3 fL (81.4-99.0); MONOCYTES ABSOLUTE AUTO 0.71 K/uL (0.20-0.90); MONOCYTES PERCENT AUTO 14.4 % (3.3-12.6); NEUTROPHILS ABSOLUTE AUTO 3.35 K/uL (1.0-7.6); NEUTROPHILS PERCENT AUTO 67.8 % (40.0-78.1); PLATELET COUNT,PLT 175 K/uL (130-375); RED BLOOD CELL COUNT 4.73 M/uL (4.14-5.76); WHITE BLOOD CELL COUNT,WBC 4.9 K/uL (3.2-11.0)
[2023-03-22 10:57] LABS: EOSINOPHILS ABSOLUTE AUTO 0.02 K/uL (0.00-0.40); IMMATURE GRAN ABSOLUTE AUTO 0.01 K/uL (0.00-0.23)
== END 2023-03-22 11:16 | disposition home or self-care (01) ==
LOC: JP.ED 09:27
DX: J45.909 Unspecified asthma, uncomplicated (principal); J10.1 Influenza due to other identified influenza virus with other respiratory manifestations; I10 Essential (primary) hypertension; E66.9 Obesity, unspecified; Z68.36 Body mass index [BMI] 36.0-36.9, adult; Z86.16 Personal history of COVID-19; Z88.8 Allergy status to other drugs, medicaments and biological substances; Z91.018 Allergy to other foods; Z79.82 Long term (current) use of aspirin; Z79.899 Other long term (current) drug therapy
CPT/HCPCS: 36415; 71045; 85025; 94640; 99284; 99285; A9270

== ENCOUNTER 2025-01-31 16:05 | Emergency (ER) | payer BC ==
[2025-01-31 16:54] VITALS: BP 146/90; PULSE 78
[2025-01-31] MEDS: Ketorolac 30 MG/ML SDV IM ONE (17:44)
== END 2025-01-31 18:20 | disposition home or self-care (01) ==
LOC: JP.ED 16:05
DX: S63.502A Unspecified sprain of left wrist, initial encounter (principal); I12.9 Hypertensive chronic kidney disease with stage 1 through stage 4 chronic kidney disease, or unspecified chronic kidney disease; N18.30 Chronic kidney disease, stage 3 unspecified; J45.909 Unspecified asthma, uncomplicated; K21.9 Gastro-esophageal reflux disease without esophagitis; E66.9 Obesity, unspecified; Z68.36 Body mass index [BMI] 36.0-36.9, adult; Z86.16 Personal history of COVID-19; Z88.8 Allergy status to other drugs, medicaments and biological substances; Z91.048 Other nonmedicinal substance allergy status; Z79.82 Long term (current) use of aspirin; Z79.899 Other long term (current) drug therapy; W00.0XXA Fall on same level due to ice and snow, initial encounter
CPT/HCPCS: 73110; 96372; 99283; J1885